=== PATIENT | female | born 1995 | race Caucasian/White ===

== ENCOUNTER 2018-11-19 20:38 | Emergency (ER) | payer OTHER, SELFPAY ==
[2018-08-31 11:34] VITALS: BMI 22.7
[2018-11-19 20:38] VITALS: BP 135/68; PULSE 112; RESP 16; TEMP 36.8; O2SAT 94; BMI 22.1
--- NOTE | 2018-11-19 20:57 | CT_ITS ---
HISTORY: ABD PAIN/VOMITING.Pt had surgery for rt hip dysplasia 11/15/18. Hx of MVP and asthma. Pt drank half of oral contrast-vomited again ADDITIONAL HISTORY: None provided. TECHNIQUE: CT images were obtained of the abdomen and pelvis without IV contrast. Enteric contrast was given. Number of images including paperwork: [id number]. A radiation dose optimization technique was used for this scan. COMPARISON: None FINDINGS: Evaluation of the abdominopelvic organs is limited in the absence of contrast. LOWER THORAX: No consolidation or pleural effusion. Dependent atelectasis. LIVER: No concerning focal lesion. GALLBLADDER: No radiopaque calculi. BILE DUCTS: No significant biliary dilatation. SPLEEN: Unremarkable. PANCREAS: Unremarkable. ADRENAL GLANDS: Unremarkable. KIDNEYS/URETERS: Unremarkable. BOWEL: No bowel obstruction. No significant bowel wall thickening. No localized inflammation. APPENDIX: Normal. 3 x 3.8 x 3 cm cystic lesion in the spleen. FREE FLUID: No significant free fluid. FREE AIR: None. LYMPH NODES: No pathologic appearing adenopathy. PERITONEUM, RETROPERITONEUM AND MESENTERY: Otherwise unremarkable. VASCULATURE: Unremarkable as imaged. ABDOMINAL WALL: Unremarkable. PELVIS: Air noted in the nondependent bladder, most likely iatrogenic. OSSEOUS AND SOFT TISSUE STRUCTURES: 3 screws are seen in the right supra-acetabular iliac bone with apparent osteotomy. Tubular defect in the supra-acetabular iliac bone extending anteriorly consistent with previous instrumentation. Defects extend are noted in the ischium, superior pubic ramus and inferior pubic ramus. Correlate with operative findings. CT/Abdomen/Pel W ORAL Cont Only IMPRESSION: No acute intra-abdominal abnormality. Findings consistent with recent right pelvic surgery. Correlate with operative findings. Individualized dose optimization techniques were used for this CT. at 2348 Reported and signed by: Nasima Paez MD Electronically Signed: Nasima Paez MD at 23:48 EDT Tel , Service support ,
[2018-11-19] MEDS: Morphine 4 MG/ML Syringe IV (21:27)
[2018-11-19] MEDS: 0.9% Normal Saline 1,000 ML 125 ML IV (21:28)
[2018-11-19] MEDS: Ondansetron 4 MG/2 ML Vial IV (21:28)
[2018-11-19 21:50] LABS: Color, Urine Yellow (Yellow); Glucose, Dipstick Normal (Normal); Ketone-Dipstick 50 mg/dl (Negative); Leukocyte Esterase-Dipstick 100 /ul (Negative); Mucous, Urine 0 SEEN /hpf (<or=2+); Nitrite-Dipstick Negative (Negative); Occult Blood-Urine 10 /ul (Negative); Protein-Dipstick Negative (Negative); Urine Bilirubin Dipstick Negative (Negative); Urine Clarity Clear (Clear); Urine Urobilinogen Normal (Normal)
[2018-11-19 21:52] LABS: Absolute Lymphocyte Count 0.77 X10^3/uL (0.83-4.51); Absolute Neutrophil Count 5.8 X10^3/uL (2.0-7.7); Basophil# 0.01 X10^3/uL; Basophil% 0.1 % (0-1); Eosinophil# 0.08 X10^3/uL; Eosinophils% 1.1 % (0-5); Hematocrit 36.2 % (37-47); Hemoglobin 12.3 g/dL (12.0-15.0); Lymphocyte # 0.77 X10^3/ul (4.0); Lymphocyte % 10.9 % (19-41); Mean Corpuscular Hgb 31.3 pg (27.0-32.0); Mean Corpuscular Volume 92.1 fL (81-99); Mean Platelet Vol. 9.3 fl (6.2-12.0); Monocyte# 0.34 X10^3/uL; Monocyte% 4.8 % (0-10); NRBC Flagged by Analyzer 0 % (0-5); Neutrophil # 5.84 X10^3/uL (2.7-7.7); Neutrophil % 82.8 % (47-70); Platelet Count 232 K/mm3 (150-450); RBC Distribution Width CV 11.9 % (11.6-14.6); RBC Distribution Width SD 40.3 fl (35.1-43.9); Red Blood Count 3.93 M/mm3 (4.2-5.4); White Blood Count 7.1 K/mm3 (4.4-11.0)
--- NOTE | 2018-11-19 21:54 | ED.DCSUM_ITS ---
- ER Visit Summary Date of Service: 11/19/18 Chief Complaint: [Abdominal pain and constipation] History of Present Illness: The patient is a 23 F [presents to the emergency department with complaint of abdominal pain that started today. Patient also complaining of constipation and not having a bowel movement in the last 6 days. Patient tells me she had surgery this week in [place] for a chronic right hip issue where she had to have a pelvic osteotomy. Patient currently taking oxycodone and morphine for pain. She has been passing gas but none today. Patient did vomit once today. She describing severe abdominal pain. Patient has history of mitral valve prolapse and history of syncope. Denies urinary symptoms. Patient does ambulate with a walker currently.] Physical Examination: [HEENT-PERRLA, EOMI. Cranial nerves II through XII grossly intact. TMs clear. Mucous membranes moist. No adenopathy. Cardiovascular-regular rate and rhythm without murmur or ectopy Lungs-clear to auscultation, chest wall stable without crepitus or subcu emphysema Abdomen-normoactive bowel sounds, soft. Patient has diffuse tenderness on palpation with guarding. There is no rebound, rigidity, or perineal signs. Patient initially stated that she could not tolerate a rectal exam. Extremities-intact ?4, normal range of motion, normal pulses, atraumatic] Test Results: [CBC with a potential white count of 7.1, hemoglobin 12, hematocrit 36, placed 232., She is pending. Urinalysis pending CT scan of the abdomen pelvis with p.o. contrast is pending.] Emergency Department Course and Treatment: [He was medicated with morphine and Zofran.] Treatment Plan: [Pending test results and CT results. Care of patient turned over to evening physician awaiting results] Disposition: [Pending] Impression: [Abdominal pain Constipation] This note was generated with [employer] dictation software. It may contain incorrect words, spelling, and punctuation that were not noted in review of the chart prior to signing ED Disposition - Plan for ED Patient: Referrals: Care Physician,No Primary [Primary Care Provider] -
[2018-11-19 22:01] LABS: Amorphous Sediment 1+; Bacteria 1+ /hpf (None Seen); Red Blood Cells-Urine 0-5 SEEN /hpf (0-5); Squamous Epithelial Cells - UA 5-10 SEEN /hpf (5-10); White Blood Cells 5-10 SEEN /hpf (0-5)
[2018-11-19 22:11] LABS: ALB/GLOB Ratio 0.9 RATIO (0.9-2.4); AST(SGOT) 45 U/L (15-37); Alanine Aminotransfer ALT/SGPT 35 U/L (13-56); Albumin, Serum 3.5 g/dL (3.2-5.0); Alkaline Phosphatase 42 U/L (45-117); Anion Gap 5 (5-15); BUN 9 mg/dL (7-18); BUN/Creat Ratio 11.6 RATIO (10-20); Calcium,Total 8.8 mg/dL (8.5-10.1); Chloride 104 mmol/L (98-107); Creatinine, Serum 0.78 mg/dL (0.55-1.02); EST Glomerular Filtration Rate 96 mL/min (>60); Est Glom Filt Rate - Afr Amer 116 mL/min (>60); Globulin 3.7 g/dL (2.2-4.2); Glucose 99 mg/dL (74-106); Lipase 217 U/L (73-393); Potassium 4.1 mmol/L (3.5-5.1); Protein, Total 7.2 g/dL (6.4-8.2); Sodium Level 137 mmol/L (136-145)
[2018-11-19] MEDS: proMETHazine 25 MG/ML Syringe 12.5 MG IV (22:40)
[2018-11-20 00:35] VITALS: BP 95/62; PULSE 75; RESP 18; O2SAT 99
--- NOTE | 2018-11-20 01:46 | ED.DCSUM_ITS ---
- ER Visit Summary Date of Service: 11/20/18 Chief Complaint: [] History of Present Illness: The patient is a 23 F [] Physical Examination: [] Test Results: [] Emergency Department Course and Treatment: I did review the patient's CT. There is no evidence of acute abdominal process. The patient does have significant stool burden. I did review the images and discussed treatment options with the patient. She was agreeable with enema. The patient did have a large bowel movement. On reevaluation, she is resting more comfortably. At this point, I do feel that she is safe for outpatient therapy and to continue her care. She is comfortable with this plan of care. Treatment Plan: [] Disposition: [] Impression: [] This note was generated with [employer] dictation software. It may contain incorrect words, spelling, and punctuation that were not noted in review of the chart prior to signing ED Disposition - Plan for ED Patient: Disposition: Home or Assisted Living Instructions: CONSTIPATION (Adult) Referrals: Care Physician,No Primary [Primary Care Provider] -
[2018-11-20 02:02] VITALS: BP 110/62; PULSE 79; RESP 16; O2SAT 98
== END 2018-11-20 02:02 | disposition home or self-care (01) ==
PROVIDERS: Emergency Provider Emergency Medicine
DX: K59.00 Constipation, unspecified (principal); R10.9 Unspecified abdominal pain; I34.1 Nonrheumatic mitral (valve) prolapse
CPT/HCPCS: 74176; 80053; 81001; 83690; 85025; 96361; 96374; 96375; 99285; J7030; A4216; J2405

== ENCOUNTER → 2019-08-28 15:01 | Outpatient (CLI) | payer OTHER, SELFPAY ==
--- NOTE | 2019-08-28 15:03 | ECHOD_ITS ---
Reason For Study: MVP Procedure This was a 2D Doppler, Color Flow transthoracic echocardiogram. Technically difficult apical images due to small intercostal windows. Exam performed in department. Left Ventricle Normal LV size. The estimated ejection fraction is 55 %. Normal diastology for age. No regional wall motion abnormalities noted. Right Ventricle Normal RV size. Normal systolic function. Atria Normal left atrium. Normal right atrium. No doppler evidence for ASD. Mitral Valve There is no mitral valve stenosis. Trivial mitral valve insufficiency. Tricuspid Valve There is no tricuspid stenosis. Mild tricuspid valve insufficiency. Unable to estimate RV systolic pressure due to insufficient tricuspid regurgitant envelope. Aortic Valve Trisinus/trileaflet aortic valve. There is no aortic stenosis. No aortic valve insufficiency. Pulmonic Valve There is no pulmonic valvular stenosis. Trivial pulmonic valve insufficiency. Great Vessels Normal aortic root. Pericardium/Pleural No pericardial effusion. MMode/2D Measurements & Calculations LVIDd: 5.3 cm IVSd: 0.72 cm Ao root diam: 2.9 cm LVIDs: 3.4 cm LVPWd: 1.0 cm LA dimension: 3.5 cm RVDd: 3.6 cm FS: 36.2 % LAV(MOD-sp4): 54.6 ml LA A4 area: 19.0 cm2 RA A4 area: 14.6 cm2 Time Measurements MV dec time: 0.26 sec Doppler Measurements & Calculations MV E max ish: 91.7 cm/sec Lat Peak E' Ish: 17.9 cm/sec Med Peak E' Ish: 15.8 cm/sec MV A max ish: 37.7 cm/sec E/E' lat: 5.1 E/E' med: 5.8 MV E/A: 2.4 Ao V2 max: 145.1 cm/sec LV V1 max: 138.2 cm/sec MR max ihs: 440.9 cm/sec Ao max P.4 mmHg LV V1 max P.6 mmHg MR max P.7 mmHg MR mean ish: 382.2 cm/sec MR mean P.6 mmHg MR VTI: 157.9 cm TV V2 max: 107.9 cm/sec PA V2 max: 122.3 cm/sec TR max ish: 212.6 cm/sec TV max P.7 mmHg TR max P.1 mmHg TV V2 mean: 55.4 cm/sec TV mean P.5 mmHg MV P1/2t-pr_phl: 113.9 msec Interpretation Summary The estimated ejection fraction is 55 %. Normal diastology for age. Trivial mitral valve insufficiency. Mild tricuspid valve insufficiency. Ordering Physician: Alejandrina Solares Referring Physician: Harish Arnold Performed By: Brodwolf, Jaron, RCS
== END ==
PROVIDERS: PCP Family Medicine; Referring Provider Specialist; Visit Provider Specialist
DX: I34.1 Nonrheumatic mitral (valve) prolapse (principal)
CPT/HCPCS: 93306